=== PATIENT | female | born 1990 | race Caucasian/White ===

== ENCOUNTER 2017-03-13 08:08 | Emergency (ER) | payer OTHER ==
[~2017-03-13 08:08] MED LIST: DICYCLOMINE HCL20 MG PO; NO MEDICATIONS; ORTHO TRI-7 DAYSX 3 PO; PRILOSEC20 M1 PO; PROZAC PO; SUDAFED PO; VOLTAREN75 MG PO; ZYRTEC10 M1 PO
[2017-03-13] MEDS ORDERED: VITANATAL OB +1 EACH (08:15)
== END 2017-03-13 09:18 | disposition home or self-care (01) ==
LOC: SED 08:08
DX: J02.0 Streptococcal pharyngitis (principal); I10 Essential (primary) hypertension; F17.210 Nicotine dependence, cigarettes, uncomplicated; Z88.8 Allergy status to other drugs, medicaments and biological substances
CPT/HCPCS: 87880; 99283